=== PATIENT | female | born 1995 ===

== ENCOUNTER 2023-03-10 16:53 | Emergency (ER) | payer MEDICAID ==
[~2023-03-10] VITALS: Ht 160 cm; Wt 64.5 kg
[2023-03-10 17:08] VITALS: BP 114/69; PULSE 110; RESP 19; TEMP 98.2
== END 2023-03-10 18:19 | disposition left against medical advice (07) ==
LOC: EMS 16:55
DX: M79.605 Pain in left leg (principal); V49.49XA Driver injured in collision with other motor vehicles in traffic accident, initial encounter; Y93.89 Activity, other specified; Y92.89 Other specified places as the place of occurrence of the external cause; Y99.8 Other external cause status
CPT/HCPCS: 99283; Z7502